=== PATIENT | female | born 1985 | race Caucasian/White ===

== ENCOUNTER 2023-06-01 12:16 | Inpatient (IN) | payer BC, OTHER ==
[~2023-06-01] VITALS: Ht 165.1 cm; Wt 126.1 kg
[2023-06-01 12:56] LABS: Basophils # (auto) 0.1 10 ^3/uL (0-0.2); Basophils % (auto) 1.2 % (0.0-2.0); Eosinophils # (auto) 0.1 10 ^3/uL (0-0.8); Hematocrit 43.2 % (36.0-46.0); Hemoglobin 14.7 g/dL (12.2-16.2); Lymphocytes # (auto) 1.8 10 ^3/uL (0.4-5.4); Lymphocytes % (auto) 29.6 % (10.0-50.0); Mean Corpuscular Hemoglobin 28.7 pg (28.0-32.0); Mean Corpuscular Hgb Conc. 34.1 g/dL (32.0-36.0); Mean Corpuscular Volume 84.4 fL (80.0-100.0); Monocytes # (auto) 0.5 10 ^3/uL (0-1.3); Monocytes % (auto) 7.8 % (0.0-12.0); Neutrophils # (auto) 3.6 10 ^3/uL (1.6-8.6); Neutrophils % (auto) 60.4 % (37.0-80.0); Nucleated Red Blood Cells % 0.1 %; Red Blood Cells 5.12 10^6/uL (4.0-5.20); Red Cell Distribution Width 12.7 % (11.8-14.3)
[2023-06-01 13:10] LABS: INR 0.99 (0.9-1.15); Partial Thromboplastin Time 29.4 SEC (24.5-34.5); Prothrombin Time 10.4 sec (9.3-11.8)
[2023-06-01 13:44] LABS: Alanine Aminotransferase 61 U/L (7-40); Albumin 4.4 g/dL (3.2-4.8); Alkaline Phosphatase 82 U/L (46-116); Anion Gap 4 (5-15); Aspartate Aminotransferase 41 U/L (13-40); BUN/Creatinine Ratio 12.5 (10.0-20.0); Bilirubin, Total 0.4 mg/dL (0.2-1.0); Blood Urea Nitrogen 9 mg/dL (9-23); Calcium 9.9 mg/dL (8.7-10.4); Carbon Dioxide 31 mmol/L (20-30); Chloride 105 mmol/L (98-107); Glucose 122 mg/dL (74-106); Potassium 4.1 mmol/L (3.5-5.1); Sodium 140 mmol/L (136-145); Total Protein 7.6 g/dL (5.7-8.2)
[2023-06-01] MEDS: NITROGLYCERIN 0.4 MG SL TAB SL ONE (17:12)
[2023-06-01] MEDS: ASPirin 325 MG TAB PO ONE (17:13)
[2023-06-01] MEDS: IPRATROPIUM BROM 0.5 MG/2.5ML INH SOL NEB ONE (18:33)
[2023-06-01] MEDS: ALBUTEROL SULF 2.5 MG/0.5ML(0.5%) NEB SOLN NEB ONE (18:33)
[2023-06-01 20:08] VITALS: BP 136/73; TEMP 97.5
[2023-06-01] MEDS: KETOROLAC TROMETH 30 MG/ML 1ML VIAL IV ONE (20:08)
[2023-06-01 20:11] VITALS: PULSE 100; RESP 18; O2SAT 97
[2023-06-01] MEDS ORDERED: ONDANSETRON HCL 4 MG/2 ML VIAL IV PRN (21:15)
[2023-06-01] MEDS ORDERED: MORPHINE SULFATE INJ 2 MG/ml SYRG IV PRN (21:15)
[2023-06-01] MEDS ORDERED: NITROGLYCERIN 0.4 MG SL TAB SL PRN (21:15)
[2023-06-01] MEDS ORDERED: ACETAMINOPHEN 325 MG TAB PO PRN (21:15)
[2023-06-01] MEDS ORDERED: TEMAZEPAM 15 MG CAP PO PRN (21:15)
[2023-06-01 21:42] LABS: Triglycerides 287 mg/dL (< 150)
[2023-06-01 21:43] LABS: LDL Cholesterol 120 mg/dL (< 100)
[2023-06-01 21:44] LABS: Cholesterol 192 mg/dL (< 200); HDL Cholesterol 46 mg/dL (40-59)
[2023-06-02] MEDS ORDERED: ASPirin 81 mg TAB PO SCH (10:00)
== END 2023-06-01 21:11 | disposition left against medical advice (07) | DRG 313 ==
LOC: ER 12:16 → TELE 21:11
PROVIDERS: ADMIT Nurse Practitioner; ATTEND Nurse Practitioner
DX: R07.9 Chest pain, unspecified (principal); Z68.42 Body mass index [BMI] 45.0-49.9, adult; E66.01 Morbid (severe) obesity due to excess calories; Z53.29 Procedure and treatment not carried out because of patient's decision for other reasons
CPT/HCPCS: 36415; 71045; 80053; 80061; 84484; 85025; 85379; 85610; 85730; 93005; 94640; 96374; G0378; J1885